=== PATIENT | female | born 1965 | race Caucasian/White ===

== ENCOUNTER 2017-11-28 13:27 | Emergency (ER) | payer MEDICARE, MEDICAID ==
[~2017-11-28] VITALS: Ht 165.1 cm; Wt 90.9 kg
[2017-11-28 14:42] LABS: BASOPHILS % (AUTO) 0.3 % (0.0-2.0); EOSINOPHILS % (AUTO) 0.3 % (1.0-6.0); HEMATOCRIT 38.1 % (36-46); HEMOGLOBIN 13.3 g/dL (12.0-16.0); LYMPHOCYTES # (AUTO) 2.4 K/uL (1.0-4.8); MEAN CORPUSCULAR HEMOGLOBIN 31.1 pg (26.0-34.0); MEAN CORPUSCULAR HGB CONC 34.9 G/dL (31.0-37.0); MEAN CORPUSCULAR VOLUME 89 fL (80-100); MONOCYTES # (AUTO) 0.5 K/uL (0.1-1.0); MONOCYTES % (AUTO) 7.7 % (2.0-9.0); NEUTROPHILS # (AUTO) 3.4 K/uL (1.8-7.7); NEUTROPHILS % (AUTO) 53.7 % (40.0-70.0); PLATELET COUNT (AUTO) 163 K/uL (150-450); RED BLOOD CELL COUNT(AUTO) 4.27 MIL/uL (4.00-5.20); RED CELL DISTRIBUTION WIDTH 13.4 % (11.5-14.5)
[2017-11-28 14:52] LABS: ANION GAP 11 mmol/L (8-16); CALCIUM, TOTAL 9.3 mg/dL (8.8-10.5); CARBON DIOXIDE 26 mmol/L (22-29); CHLORIDE 99 mmol/L (98-107); CREATININE 0.75 mg/dL (0.60-1.30); GLOMERULAR FILTR. RATE CALC > 60 mL/min (>60); GLUCOSE,RANDOM 76 mg/dL (70-110); POTASSIUM 3.7 mmol/L (3.5-5.1); SODIUM SERUM 136 mmol/L (136-145); UREA NITROGEN, BLOOD 17 mg/dL (7-18)
[2017-11-28 14:57] LABS: ALANINE AMINOTRANSFERASE 50 U/L (12-78); ALBUMIN 3.6 g/dL (3.4-5.0); ALKALINE PHOSPHATASE 95 U/L (46-116); ASPARTATE AMINOTRANSFERASE 32 U/L (15-37); BILIRUBIN,TOTAL 0.5 mg/dL (0.1-1.0); LIPASE 121 U/L (73-393); TOTAL PROTEIN, SERUM 7.8 g/dL (6.4-8.2)
[2017-11-28 15:59] VITALS: BP 132/72
[2017-11-28 16:10] LABS: APPEARANCE,URINE CLEAR (CLEAR); BILIRUBIN,URINE NEGATIVE (NEGATIVE); GLUCOSE, URINE (UA) NEGATIVE (NEGATIVE); KETONES,URINE NEGATIVE (NEGATIVE); LEUKOCYTE ESTERASE ,URINE LARGE (NEGATIVE); NITRATE,URINE NEGATIVE (NEGATIVE); OCCULT BLOOD,URINE TRACE (NEGATIVE); PROTEIN,URINE NEGATIVE (NEGATIVE); UROBILINOGEN,URINE 0.2 mg/dL (<=1.0)
[2017-11-28 16:22] LABS: BACTERIA,URINE Few /HPF (None Seen); SQUAMOUS EPITHELIAL CELL,UR Few /LPF (None Seen)
== END 2017-11-28 17:01 | disposition home or self-care (01) ==
LOC: EMS 13:29
DX: A59.01 Trichomonal vulvovaginitis (principal); M54.5 Low back pain; G89.29 Other chronic pain; F12.90 Cannabis use, unspecified, uncomplicated; F17.210 Nicotine dependence, cigarettes, uncomplicated
CPT/HCPCS: 87086; 99285

== ENCOUNTER 2017-11-28 20:14 | Emergency (ER) | payer MEDICARE, MEDICAID ==
[~2017-11-28] VITALS: Ht 165.1 cm; Wt 81.8 kg
[2017-11-28 21:03] LABS: AMPHET/METH SCREEN,URINE POSITIVE (NEGATIVE); BARBITURATE SCREEN, URINE NEGATIVE (NEGATIVE); BENZODIAZEPINES SCREEN,URINE NEGATIVE (NEGATIVE); CANNABINOID SCREEN,URINE POSITIVE (NEGATIVE); COCAINE SCREEN,URINE NEGATIVE (NEGATIVE); METHADONE SCREEN, URINE NEGATIVE (NEGATIVE); OPIATE SCREEN,URINE NEGATIVE (NEGATIVE)
[2017-11-28 21:04] LABS: PHENCYCLIDINE SCREEN,URINE NEGATIVE (NEGATIVE)
[2017-11-28 22:43] VITALS: BP 132/74
[2017-11-28] MEDS ORDERED: IBUPROFEN 600 MG TABLET PO ONE (22:45)
[2017-11-28] MEDS ORDERED: LORazepam 1 MG TABLET PO ONE (22:45)
== END 2017-11-28 23:32 | disposition home or self-care (01) ==
LOC: EMS 20:15
DX: F41.9 Anxiety disorder, unspecified (principal); F99 Mental disorder, not otherwise specified; F15.10 Other stimulant abuse, uncomplicated; F12.90 Cannabis use, unspecified, uncomplicated; F17.210 Nicotine dependence, cigarettes, uncomplicated; Z76.0 Encounter for issue of repeat prescription
CPT/HCPCS: 99284; 99406

== ENCOUNTER 2019-01-02 12:01 | Inpatient (IN) | payer MEDICARE, MEDICAID ==
[~2019-01-02] VITALS: Ht 162.6 cm; Wt 90.4 kg
[2019-01-02 13:18] LABS: AMPHET/METH SCREEN,URINE POSITIVE (NEGATIVE); BARBITURATE SCREEN, URINE NEGATIVE (NEGATIVE); BENZODIAZEPINES SCREEN,URINE NEGATIVE (NEGATIVE); CANNABINOID SCREEN,URINE POSITIVE (NEGATIVE); COCAINE SCREEN,URINE NEGATIVE (NEGATIVE); GLUCOSE, URINE (UA) NEGATIVE (NEGATIVE); KETONES,URINE NEGATIVE (NEGATIVE); LEUKOCYTE ESTERASE ,URINE TRACE (NEGATIVE); METHADONE SCREEN, URINE NEGATIVE (NEGATIVE); NITRATE,URINE NEGATIVE (NEGATIVE); OCCULT BLOOD,URINE NEGATIVE (NEGATIVE); OPIATE SCREEN,URINE POSITIVE (NEGATIVE); PROTEIN,URINE NEGATIVE (NEGATIVE)
[2019-01-02 13:20] LABS: PHENCYCLIDINE SCREEN,URINE NEGATIVE (NEGATIVE)
[2019-01-02 13:28] LABS: APPEARANCE,URINE HAZY (CLEAR); BILIRUBIN,URINE PRELIM. POSITIVE (NEGATIVE)
[2019-01-02 13:34] LABS: BACTERIA,URINE Rare /HPF (None Seen); RBC,URINE 0-2 /HPF (0-2); SQUAMOUS EPITHELIAL CELL,UR Moderate /LPF (None Seen)
[2019-01-02 13:51] LABS: BASOPHILS % (AUTO) 0.8 % (0.0-2.0); EOSINOPHILS % (AUTO) 1.7 % (1.0-6.0); HEMATOCRIT 40.1 % (36-46); HEMOGLOBIN 13.4 g/dL (12.0-16.0); LYMPHOCYTES # (AUTO) 1.5 K/uL (1.0-4.8); LYMPHOCYTES % (AUTO) 31.2 % (22.0-44.0); MEAN CORPUSCULAR HEMOGLOBIN 29.6 pg (26.0-34.0); MEAN CORPUSCULAR HGB CONC 33.4 G/dL (31.0-37.0); MEAN CORPUSCULAR VOLUME 88 fL (80-100); MONOCYTES # (AUTO) 0.4 K/uL (0.1-1.0); MONOCYTES % (AUTO) 8.2 % (2.0-9.0); NEUTROPHILS # (AUTO) 2.7 K/uL (1.8-7.7); NEUTROPHILS % (AUTO) 58.1 % (40.0-70.0); PLATELET COUNT (AUTO) 178 K/uL (150-450); RED BLOOD CELL COUNT(AUTO) 4.53 MIL/uL (4.00-5.20); RED CELL DISTRIBUTION WIDTH 15.2 % (11.5-14.5)
[2019-01-02] MEDS ORDERED: HALOPERIDOL LACTATE 5 MG/ML VIAL ONE (14:08)
[2019-01-02] MEDS ORDERED: LORazepam 2 MG/ML VIAL ONE (14:08)
[2019-01-02] MEDS ORDERED: DiphenhydrAMINE HCL 50 MG/ML VIAL ONE (14:08)
[2019-01-02 14:09] LABS: ANION GAP 13 mmol/L (8-16); CALCIUM, TOTAL 9.5 mg/dL (8.8-10.5); CARBON DIOXIDE 24 mmol/L (22-29); CHLORIDE 107 mmol/L (98-107); CREATININE 0.78 mg/dL (0.60-1.30); GLOMERULAR FILTR. RATE CALC > 60 mL/min (>60); GLUCOSE,RANDOM 86 mg/dL (70-110); POTASSIUM 3.6 mmol/L (3.5-5.1); SODIUM SERUM 144 mmol/L (136-145); UREA NITROGEN, BLOOD 17 mg/dL (7-18)
[2019-01-02 14:15] LABS: ALANINE AMINOTRANSFERASE 54 U/L (12-78); ALBUMIN 3.6 g/dL (3.4-5.0); ALKALINE PHOSPHATASE 76 U/L (46-116); ASPARTATE AMINOTRANSFERASE 42 U/L (15-37); BILIRUBIN,TOTAL 0.4 mg/dL (0.1-1.0); TOTAL PROTEIN, SERUM 7.1 g/dL (6.4-8.2)
[2019-01-02] MEDS ORDERED: HALOPERIDOL LACTATE 5 MG/ML VIAL IM ONE (14:15)
[2019-01-02] MEDS ORDERED: LORazepam 2 MG/ML VIAL IM ONE (14:15)
[2019-01-02] MEDS ORDERED: DiphenhydrAMINE HCL 50 MG/ML VIAL IM ONE (14:15)
[2019-01-02] MEDS ORDERED: ZOLPIDEM TARTRATE 10 MG TABLET PO PRN (17:15)
[2019-01-02] MEDS ORDERED: LORazepam 2 MG TABLET PO PRN (17:15)
[2019-01-02] MEDS ORDERED: HALOPERIDOL 5 MG TABLET PO PRN (17:15)
[2019-01-02] MEDS ORDERED: ACETAMINOPHEN 325 MG TABLET PO PRN ×2 (17:15→20:15)
[2019-01-02] MEDS ORDERED: IBUPROFEN 400 MG TABLET PO PRN ×2 (17:15→20:15)
[2019-01-02 20:10] VITALS: BP 119/83
[2019-01-02] MEDS ORDERED: LOPERAMIDE HCL 2 MG CAPSULE PO PRN (20:15)
[2019-01-02] MEDS ORDERED: MAGNESIUM HYDROXIDE SUSPENSION 30 ML UDCUP PO PRN (20:15)
[2019-01-02] MEDS ORDERED: ALBUTEROL SULFATE HFA 90 MCG/PUFF 8 GM INHALER IH PRN (20:15)
[2019-01-02] MEDS ORDERED: PETROLATUM,WHITE 71 GM JELLY TP PRN (20:15)
[2019-01-02] MEDS ORDERED: GuaiFENesin/D-METHORPHAN [SUGAR-FREE] 200-20MG/10 ML SYRUP UDCUP PO PRN (20:15)
[2019-01-02] MEDS ORDERED: ONDANSETRON HCL 4 MG TABLET PO PRN (20:15)
[2019-01-02] MEDS ORDERED: DOCUSATE SODIUM 100 MG CAPSULE PO PRN (20:15)
[2019-01-02] MEDS ORDERED: MAG HYDROX/AL HYDROX/SIMETH ES 30 ML SUSPENSION UDCUP PO PRN (20:15)
[2019-01-02] MEDS ORDERED: CloNIDine HCL 0.1 MG TABLET PO PRN (20:15)
[2019-01-03 06:36] VITALS: BP 105/60
[2019-01-03 08:24] LABS: BASOPHILS % (AUTO) 0.5 % (0.0-2.0); EOSINOPHILS % (AUTO) 1.7 % (1.0-6.0); HEMATOCRIT 39.8 % (36-46); HEMOGLOBIN 13.3 g/dL (12.0-16.0); LYMPHOCYTES # (AUTO) 1.1 K/uL (1.0-4.8); LYMPHOCYTES % (AUTO) 26.5 % (22.0-44.0); MEAN CORPUSCULAR HEMOGLOBIN 29.4 pg (26.0-34.0); MEAN CORPUSCULAR HGB CONC 33.3 G/dL (31.0-37.0); MEAN CORPUSCULAR VOLUME 88 fL (80-100); MONOCYTES # (AUTO) 0.3 K/uL (0.1-1.0); MONOCYTES % (AUTO) 8.4 % (2.0-9.0); NEUTROPHILS # (AUTO) 2.6 K/uL (1.8-7.7); NEUTROPHILS % (AUTO) 62.9 % (40.0-70.0); PLATELET COUNT (AUTO) 165 K/uL (150-450); RED BLOOD CELL COUNT(AUTO) 4.51 MIL/uL (4.00-5.20); RED CELL DISTRIBUTION WIDTH 15.2 % (11.5-14.5)
[2019-01-03 08:31] VITALS: BP 101/60
[2019-01-03 09:08] LABS: ALANINE AMINOTRANSFERASE 50 U/L (12-78); ALBUMIN 3.1 g/dL (3.4-5.0); ALKALINE PHOSPHATASE 70 U/L (46-116); ANION GAP 10 mmol/L (8-16); ASPARTATE AMINOTRANSFERASE 35 U/L (15-37); BILIRUBIN,TOTAL 0.6 mg/dL (0.1-1.0); CALCIUM, TOTAL 9.2 mg/dL (8.8-10.5); CARBON DIOXIDE 25 mmol/L (22-29); CHLORIDE 106 mmol/L (98-107); CHOL/HDL RATIO 2.5 (3.9-5.7); CHOLESTEROL 158 mg/dL (131-200); CREATININE 0.64 mg/dL (0.60-1.30); GLOMERULAR FILTR. RATE CALC > 60 mL/min (>60); GLUCOSE,RANDOM 88 mg/dL (70-110); HDL CHOLESTEROL 62 mg/dL (40-60); LDL CHOL (CALC.) 88 mg/dL (0-130); POTASSIUM 3.7 mmol/L (3.5-5.1); SODIUM SERUM 141 mmol/L (136-145); THYROID STIMULATING HORMONE 0.51 uIU/mL (0.36-3.74); TOTAL PROTEIN, SERUM 6.6 g/dL (6.4-8.2); TRIGLYCERIDES 38 mg/dL (15-150); UREA NITROGEN, BLOOD 12 mg/dL (7-18)
[2019-01-03] MEDS: RisperiDONE 2 MG TABLET PO SCH ×2 (10:35→17:00)
[2019-01-03 16:03] VITALS: BP 100/66
[2019-01-03] MEDS ORDERED: DiphenhydrAMINE HCL 25 MG CAPSULE PO ONE (16:15)
[2019-01-03 16:45] VITALS: BP 131/91
[2019-01-03] MEDS ORDERED: RIVAROXABAN 15 MG TABLET PO SCH (17:00)
[2019-01-04 08:13] VITALS: BP 126/72
[2019-01-04] MEDS: BENZTROPINE MESYLATE 1 MG TABLET PO SCH (09:00)
[2019-01-04] MEDS: RisperiDONE 2 MG TABLET PO SCH (09:00)
[2019-01-04] MEDS ORDERED: HydrOXYzine PAMOATE 25 MG CAPSULE PO PRN (10:45)
[2019-01-04] MEDS ORDERED: GABAPENTIN 300 MG CAPSULE PO SCH ×2 (11:00→13:00)
[2019-01-04] MEDS: FLUoxetine HCL 20 MG CAPSULE PO SCH (11:25)
[2019-01-04] MEDS: GABAPENTIN 300 MG CAPSULE PO SCH ×2 (13:07→16:31)
[2019-01-04] MEDS: NICOTINE 14 MG/24 HOUR PATCH TD PRN (13:32)
[2019-01-04] MEDS ORDERED: TraMADol HCL 50 MG TABLET PO PRN (16:00)
[2019-01-04 16:07] VITALS: BP 126/76
[2019-01-04 16:30] VITALS: BP 129/75
[2019-01-04] MEDS: RisperiDONE 1 MG TABLET PO SCH (16:31)
[2019-01-04] MEDS ORDERED: RIVAROXABAN 20 MG TABLET PO SCH (17:00)
[2019-01-05 06:46] VITALS: BP 101/62
[2019-01-05 08:14] VITALS: BP 126/78
[2019-01-05] MEDS: RisperiDONE 1 MG TABLET PO SCH (08:45)
[2019-01-05] MEDS: FLUoxetine HCL 20 MG CAPSULE PO SCH (08:46)
[2019-01-05] MEDS: GABAPENTIN 300 MG CAPSULE PO SCH ×2 (08:46→12:21)
[2019-01-05] MEDS: BENZTROPINE MESYLATE 1 MG TABLET PO SCH (08:46)
[2019-01-05] MEDS: NICOTINE 14 MG/24 HOUR PATCH TD PRN (09:41)
[2019-01-05] MEDS ORDERED: RISP1 PO (10:02)
[2019-01-05] MEDS ORDERED: FLUO-191 PO (10:03)
[2019-01-05] MEDS ORDERED: BENZ1TAB10 PO (10:04)
[2019-01-05] MEDS ORDERED: GABA-531 PO (10:05)
[2019-01-05] MEDS ORDERED: RIVA15T PO (10:06)
== END 2019-01-05 13:00 | disposition home or self-care (01) | DRG 885 ==
LOC: EMS 12:02 → B3A 17:45
PROVIDERS: ADMIT Psychiatry & Neurology Child & Adolescent Psychiatry; ATTEND Psychiatry & Neurology Child & Adolescent Psychiatry
DX: F20.9 Schizophrenia, unspecified (principal); D68.9 Coagulation defect, unspecified; F19.20 Other psychoactive substance dependence, uncomplicated; F17.200 Nicotine dependence, unspecified, uncomplicated; F15.10 Other stimulant abuse, uncomplicated; R53.83 Other fatigue; D72.819 Decreased white blood cell count, unspecified; F99 Mental disorder, not otherwise specified; F12.90 Cannabis use, unspecified, uncomplicated
CPT/HCPCS: 83036; 84443; 96372; 99406; G0480; J1200; J1630; J2060

== ENCOUNTER 2019-07-28 00:31 | Inpatient (IN) | payer MEDICARE, OTHER, MEDICAID ==
[~2019-07-28] VITALS: Ht 162.6 cm; Wt 86.8 kg
[~2019-07-28 00:31] MED LIST: BENZ1TAB10 PO; FLUO-191 PO; GABA-531 PO; RISP1 PO; RIVA15T PO
[2019-07-28] MEDS ORDERED: HYD25 PO (01:29)
[2019-07-28] MEDS ORDERED: TRAZ-220 PO (01:29)
[2019-07-28 02:15] LABS: GLUCOSE,POINT OF CARE 90 MG/DL (70-110)
[2019-07-28 02:21] LABS: BASOPHILS % (AUTO) 0.7 % (0.0-2.0); EOSINOPHILS % (AUTO) 1.3 % (1.0-6.0); HEMATOCRIT 38.9 % (36-46); HEMOGLOBIN 12.9 g/dL (12.0-16.0); LYMPHOCYTES # (AUTO) 2.2 K/uL (1.0-4.8); LYMPHOCYTES % (AUTO) 46.4 % (22.0-44.0); MEAN CORPUSCULAR HEMOGLOBIN 28.9 pg (26.0-34.0); MEAN CORPUSCULAR HGB CONC 33.2 G/dL (31.0-37.0); MEAN CORPUSCULAR VOLUME 87 fL (80-100); MONOCYTES # (AUTO) 0.6 K/uL (0.1-1.0); MONOCYTES % (AUTO) 11.8 % (2.0-9.0); NEUTROPHILS # (AUTO) 1.9 K/uL (1.8-7.7); NEUTROPHILS % (AUTO) 39.8 % (40.0-70.0); PLATELET COUNT (AUTO) 169 K/uL (150-450); RED BLOOD CELL COUNT(AUTO) 4.47 MIL/uL (4.00-5.20); RED CELL DISTRIBUTION WIDTH 15.5 % (11.5-14.5)
[2019-07-28 02:29] LABS: AMPHET/METH SCREEN,URINE POSITIVE (NEGATIVE); BARBITURATE SCREEN, URINE NEGATIVE (NEGATIVE); BENZODIAZEPINES SCREEN,URINE NEGATIVE (NEGATIVE); CANNABINOID SCREEN,URINE POSITIVE (NEGATIVE); COCAINE SCREEN,URINE NEGATIVE (NEGATIVE); METHADONE SCREEN, URINE NEGATIVE (NEGATIVE); OPIATE SCREEN,URINE NEGATIVE (NEGATIVE)
[2019-07-28 02:30] LABS: PHENCYCLIDINE SCREEN,URINE NEGATIVE (NEGATIVE)
[2019-07-28 02:30] LABS: PROTHROMBIN TIME 20.4 SEC (9.4-11.6)
[2019-07-28 02:31] LABS: ANION GAP 11 mmol/L (8-16); CALCIUM, TOTAL 9.5 mg/dL (8.8-10.5); CARBON DIOXIDE 24 mmol/L (22-29); CHLORIDE 104 mmol/L (98-107); CREATININE 0.82 mg/dL (0.60-1.30); GLOMERULAR FILTR. RATE CALC > 60 mL/min (>60); GLUCOSE,RANDOM 90 mg/dL (70-110); POTASSIUM 3.7 mmol/L (3.5-5.1); SODIUM SERUM 139 mmol/L (136-145)
[2019-07-28 02:43] LABS: ACETAMINOPHEN < 2 mcg/mL (10-30); ALANINE AMINOTRANSFERASE 42 U/L (12-78); ALBUMIN 3.9 g/dL (3.4-5.0); ALKALINE PHOSPHATASE 68 U/L (46-116); ASPARTATE AMINOTRANSFERASE 34 U/L (15-37); BILIRUBIN,TOTAL 0.7 mg/dL (0.1-1.0); TOTAL PROTEIN, SERUM 7.6 g/dL (6.4-8.2)
[2019-07-28 02:48] LABS: UREA NITROGEN, BLOOD 19 mg/dL (7-18)
[2019-07-28 02:53] LABS: SALICYLATE 1.9 mg/dL (2.8-20.0)
[2019-07-28] MEDS ORDERED: 0.9% SODIUM CHLORIDE 10 ML SYRINGE IVP PRN (05:15)
[2019-07-28] MEDS ORDERED: ONDANSETRON HCL 4 MG/2 ML VIAL IVP PRN (05:15)
[2019-07-28] MEDS ORDERED: OxyCODONE HCL/ACETAMINOPHEN 5-325 MG TABLET PO PRN ×2 (05:15)
[2019-07-28] MEDS ORDERED: SODIUM CHLORIDE 0.9% 1,000 ML IV SCH (05:30)
[2019-07-28] MEDS ORDERED: DOCUSATE SODIUM 100 MG CAPSULE PO SCH (09:00)
[2019-07-28 09:24] LABS: INR 1.7 (0.9-1.1); PROTHROMBIN TIME 17.2 SEC (9.4-11.6)
[2019-07-28] MEDS ORDERED: ZOLPIDEM TARTRATE 10 MG TABLET PO PRN (11:00)
[2019-07-28] MEDS ORDERED: HALOPERIDOL 5 MG TABLET PO PRN (11:00)
[2019-07-28 13:53] VITALS: BP 123/84
[2019-07-28 14:40] LABS: INR 1.2 (0.9-1.1); PROTHROMBIN TIME 12.9 SEC (9.4-11.6)
[2019-07-28 17:41] VITALS: BP 113/68
[2019-07-28] MEDS: LORazepam 2 MG TABLET PO PRN (17:43)
[2019-07-28] MEDS: GABAPENTIN 300 MG CAPSULE PO SCH (19:30)
[2019-07-28] MEDS: RisperiDONE 1 MG TABLET PO SCH (19:30)
[2019-07-28] MEDS: TraZODone HCL 100 MG TABLET PO SCH (20:23)
[2019-07-29] MEDS ORDERED: CloNIDine HCL 0.1 MG TABLET PO PRN (09:15)
[2019-07-29] MEDS ORDERED: MAGNESIUM HYDROXIDE SUSPENSION 30 ML UDCUP PO PRN (09:15)
[2019-07-29] MEDS ORDERED: LOPERAMIDE HCL 2 MG CAPSULE PO PRN (09:15)
[2019-07-29] MEDS ORDERED: BACITRACIN 28.4 GM OINTMENT TP PRN (09:15)
[2019-07-29] MEDS ORDERED: BENZOCAINE/MENTHOL LOZENGE MM PRN (09:15)
[2019-07-29] MEDS ORDERED: ACETAMINOPHEN 325 MG TABLET PO PRN (09:15)
[2019-07-29] MEDS ORDERED: OMEPRAZOLE 20 MG CAPSULE PO PRN (09:15)
[2019-07-29] MEDS ORDERED: IBUPROFEN 600 MG TABLET PO PRN (09:15)
[2019-07-29] MEDS ORDERED: DOCUSATE SODIUM 100 MG CAPSULE PO PRN (09:15)
[2019-07-29] MEDS ORDERED: ALBUTEROL SULFATE HFA 90 MCG/PUFF 8 GM INHALER IH PRN (09:15)
[2019-07-29] MEDS ORDERED: ONDANSETRON HCL 4 MG TABLET PO PRN (09:15)
[2019-07-29] MEDS ORDERED: MAG HYDROX/AL HYDROX/SIMETH ES 30 ML SUSPENSION UDCUP PO PRN (09:15)
[2019-07-29] MEDS ORDERED: PETROLATUM,WHITE 28 GM JELLY TP PRN (09:15)
[2019-07-29] MEDS: FLUoxetine HCL 20 MG CAPSULE PO SCH (12:00)
[2019-07-29] MEDS: RisperiDONE 1 MG TABLET PO SCH ×2 (12:01→17:29)
[2019-07-29] MEDS: GABAPENTIN 300 MG CAPSULE PO SCH ×3 (12:01→17:29)
[2019-07-29 17:34] VITALS: BP 119/70
[2019-07-29] MEDS: TraZODone HCL 100 MG TABLET PO SCH (20:21)
[2019-07-30 07:34] LABS: BASOPHILS % (AUTO) 0.6 % (0.0-2.0); HEMATOCRIT 38.1 % (36-46); HEMOGLOBIN 12.9 g/dL (12.0-16.0); LYMPHOCYTES % (AUTO) 44.4 % (22.0-44.0); MEAN CORPUSCULAR HEMOGLOBIN 29.2 pg (26.0-34.0); MEAN CORPUSCULAR HGB CONC 33.7 G/dL (31.0-37.0); MEAN CORPUSCULAR VOLUME 87 fL (80-100); MONOCYTES # (AUTO) 0.3 K/uL (0.1-1.0); NEUTROPHILS # (AUTO) 2.1 K/uL (1.8-7.7); PLATELET COUNT (AUTO) 157 K/uL (150-450); RED CELL DISTRIBUTION WIDTH 15.9 % (11.5-14.5)
[2019-07-30 08:05] LABS: ANION GAP 8 mmol/L (8-16); CALCIUM, TOTAL 8.7 mg/dL (8.8-10.5); CARBON DIOXIDE 24 mmol/L (22-29); CHLORIDE 107 mmol/L (98-107); GLOMERULAR FILTR. RATE CALC > 60 mL/min (>60); GLUCOSE,RANDOM 89 mg/dL (70-110); POTASSIUM 3.9 mmol/L (3.5-5.1); SODIUM SERUM 139 mmol/L (136-145); UREA NITROGEN, BLOOD 13 mg/dL (7-18)
[2019-07-30] MEDS: GABAPENTIN 300 MG CAPSULE PO SCH ×3 (08:53→16:34)
[2019-07-30] MEDS: RisperiDONE 1 MG TABLET PO SCH ×2 (08:53→16:34)
[2019-07-30] MEDS: FLUoxetine HCL 20 MG CAPSULE PO SCH (08:53)
[2019-07-30 09:37] VITALS: BP 99/62
[2019-07-30] MEDS: TraZODone HCL 100 MG TABLET PO SCH (20:13)
[2019-07-31 08:43] VITALS: BP 97/56
[2019-07-31] MEDS: RisperiDONE 1 MG TABLET PO SCH ×2 (09:03→16:15)
[2019-07-31] MEDS: FLUoxetine HCL 20 MG CAPSULE PO SCH (09:03)
[2019-07-31] MEDS: GABAPENTIN 300 MG CAPSULE PO SCH ×3 (09:04→16:15)
[2019-07-31] MEDS: LORazepam 2 MG TABLET PO PRN (15:06)
[2019-07-31 16:17] VITALS: BP 116/75
[2019-07-31] MEDS: TraZODone HCL 100 MG TABLET PO SCH (20:28)
[2019-08-01 08:40] VITALS: BP 103/55
[2019-08-01] MEDS: GABAPENTIN 300 MG CAPSULE PO SCH ×3 (09:39→16:17)
[2019-08-01] MEDS: RisperiDONE 1 MG TABLET PO SCH ×2 (09:40→16:17)
[2019-08-01] MEDS: FLUoxetine HCL 20 MG CAPSULE PO SCH (09:40)
[2019-08-01] MEDS: LORazepam 2 MG TABLET PO PRN (09:44)
[2019-08-01] MEDS ORDERED: RISP1TAB89 PO (17:59)
== END 2019-08-01 18:30 | disposition home or self-care (01) | DRG 885 ==
LOC: EMS 00:33 → 3EC 12:54
PROVIDERS: ADMIT Psychiatry & Neurology Psychiatry; ATTEND Psychiatry & Neurology Psychiatry
DX: F25.9 Schizoaffective disorder, unspecified (principal); R45.851 Suicidal ideations; Z88.8 Allergy status to other drugs, medicaments and biological substances; Z91.040 Latex allergy status; F17.200 Nicotine dependence, unspecified, uncomplicated; F10.21 Alcohol dependence, in remission; K59.00 Constipation, unspecified; F41.9 Anxiety disorder, unspecified; F17.210 Nicotine dependence, cigarettes, uncomplicated; G47.00 Insomnia, unspecified; G89.29 Other chronic pain; F12.90 Cannabis use, unspecified, uncomplicated; M54.9 Dorsalgia, unspecified; Y92.89 Other specified places as the place of occurrence of the external cause; F15.10 Other stimulant abuse, uncomplicated; T45.512A Poisoning by anticoagulants, intentional self-harm, initial encounter; F32.9 Major depressive disorder, single episode, unspecified; Z91.5 Personal history of self-harm
CPT/HCPCS: 93005; G0480; G0481; J7030